=== PATIENT | male | born 1955 | race Caucasian/White ===

== ENCOUNTER 2016-12-16 16:18 | Emergency (ER) | payer OTHER ==
[~2016-12-16] VITALS: Ht 175.3 cm; Wt 90.0 kg
[2016-12-16 16:19] VITALS: BP 179/95; PULSE 95; RESP 20; TEMP 99.4; O2SAT 96
--- NOTE | 2016-12-16 16:37 | PD ---
Physical Exam Time Seen by Provider: 16:35 Narrative 61 y/o male here for eval of RLQ abdominal/back pain. Hx of kidney stones but this feels different. Vital signs reviewed. Seen at triage desk. Awaiting bed placement. Data Data Last Documented VS Vital Signs Date Time Temp Pulse Resp B/P Pulse Ox O2 Delivery O2 Flow Rate FiO2 12/16/16 16:19 99.4 95 20 179/95 96 Room Air [facility] Medical Record Reviewed: Yes Supervised Visit with MARLINE: Sedrick Chan Dec 16, 2016 16:37
[2016-12-16 17:16] LABS: AUTOMATED NEUTROPHIL # 11.4 TH/MM3 (1.8-7.7); BASOPHIL % 0.2 % (0.0-2.0); EOSINOPHIL # 0.1 TH/MM3 (0-0.4); EOSINOPHIL % 0.6 % (0.0-4.0); HEMATOCRIT 49.6 % (39.0-51.0); HEMO FLAGS DIFF FINAL; LYMPH % 10.5 % (9.0-44.0); LYMPHOCYTE # 1.5 TH/MM3 (1.0-4.8); MEAN CELL VOLUME 88.4 FL (80.0-100.0); MEAN CORPUSCULAR HEMOGLOBIN 29.7 PG (27.0-34.0); MEAN CORPUSCULAR HGB CONC 33.6 % (32.0-36.0); MONO % 7.2 % (0.0-8.0); NEUT % 81.5 % (16.0-70.0); PLATELET COUNT 229 TH/MM3 (150-450); RED BLOOD COUNT 5.61 MIL/MM3 (4.50-5.90); RED CELL DISTRIBUTION WIDTH 13.6 % (11.6-17.2); WHITE BLOOD COUNT 13.9 TH/MM3 (4.0-11.0)
[2016-12-16 17:18] LABS: BACTERIA, URINE RARE /hpf; BLOOD, URINE MOD (NEG); COMMENT (UR) CULTURE INDICATED; CULTURE IF INDICATED CULTURE INDICATED; GLUCOSE,URINE NEG (NEG); KETONE, URINE NEG (NEG); MUCUS URINE FEW /lpf (OCC); NITRITE,URINE NEG (NEG); PH, URINE 5.5 (5.0-8.5); SQUAMOUS EPITHELIAL CELL URINE <1 /hpf (0-5); URINE COLOR YELLOW (YELLW/STRAW)
[2016-12-16 17:27] LABS: APTT (PATIENT) 25.4 SEC (24.3-30.1); PROTHROMBIN TIME - PATIENT 10.6 SEC (9.8-11.6)
[2016-12-16 17:55] LABS: ALKALINE PHOSPHATASE 80 U/L (45-117); ALT (GPT) 44 U/L (12-78); TOTAL BILIRUBIN ADULT 0.6 MG/DL (0.2-1.0)
[2016-12-16 18:09] LABS: ANION GAP 7 MEQ/L (5-15); AST (GOT) 31 U/L (15-37); BICARBONATE 28.7 MEQ/L (21.0-32.0); BLOOD UREA NITROGEN 17 MG/DL (7-18); CHLORIDE 102 MEQ/L (98-107); GLOMERULAR FILTRATION RATE 65 ML/MIN (>89); SODIUM (NA) 138 MEQ/L (136-145)
[2016-12-16 18:11] LABS: POTASSIUM 4.2 MEQ/L (3.5-5.1)
[2016-12-16 18:31] VITALS: BP 183/86; PULSE 93; RESP 18; O2SAT 95
--- NOTE | 2016-12-16 18:34 | PD ---
HPI Chief Complaint: Complaint Time Seen by Provider: 18:16 Travel History International Travel<30 days: No Contact w/Intl Traveler<30days: No Traveled to known affect area: No History of Present Illness HPI 61-year-old male arrives to the ER complaining of severe right lower quadrant pain with radiation to the testicles. It started earlier today and then resolved spontaneously. He states the pain was 10 over 10. He has history of kidney stones and states the pain is somewhat different in quality. At time of ER evaluation the pain has more or less resolved. During the episode of pain in the testicles had evidently retracted into the groin. He notes that the pain started somewhat gradually. He also notes that he did feel some discomfort in the right flank. He's had no fever. There is no nausea or vomiting. Bending over at the waist while seated mitigated pain severity. He has seen no hematuria. PFSH Past Medical History Genitourinary: Yes Social History Alcohol Use: Yes Tobacco Use: No Allergies-Medications (Allergen,Severity, Reaction): Coded Allergies: No Known Allergies (Unverified , 12/16/16) Reported Meds & Prescriptions Reported Meds & Active Scripts Active Cipro (Ciprofloxacin HCl) 500 Mg Tab 500 Mg PO BID 5 Days Flomax (Tamsulosin HCl) 0.4 Mg Cap 0.4 Mg PO HS Percocet (Oxycodone-Acetaminophen) 5-325 mg Tab 1-2 Tab PO Q8HR PRN Review of Systems Except as stated in HPI: all other systems reviewed are Neg General / Constitutional: No: Fever Gastrointestinal: Positive: Abdominal Pain Physical Exam Narrative GENERAL: 61-year-old male well-nourished well-developed acute distress GENITOURINARY: No testicular mass. The testicular lie appears normal. There is no pain with manipulation/elevation of the scrotum/testicles. No penile discharge. No inguinal hernia. No perineal tenderness or crepitus. SKIN: Focused skin assessment warm/dry. HEAD: Atraumatic. Normocephalic. EYES: Pupils equal and round. No scleral icterus. No injection or drainage. ENT: No nasal bleeding or discharge. Mucous membranes pink and moist. NECK: Trachea midline. No JVD. CARDIOVASCULAR: Regular rate and rhythm. No murmur appreciated. RESPIRATORY: No accessory muscle use. Clear to auscultation. Breath sounds equal bilaterally. GASTROINTESTINAL: No TTP RLQ. No TTP suprapubic abdomen or in epigastrium. Soft. No flank tenderness. MUSCULOSKELETAL: No obvious deformities. No clubbing. No cyanosis. No edema. NEUROLOGICAL: Awake and alert. No obvious cranial nerve deficits. Motor grossly within normal limits. Normal speech. PSYCHIATRIC: Appropriate mood and affect; insight and judgment normal. Data Data Last Documented VS Vital Signs Date Time Temp Pulse Resp B/P Pulse Ox O2 Delivery O2 Flow Rate FiO2 12/16/16 20:59 98.7 78 16 141/63 99 12/16/16 20:18 Room Air VS reviewed Orders Complete Blood Count With Diff (12/16/16 16:37) Comprehensive Metabolic Panel (12/16/16 16:37) Lipase (12/16/16 16:37) Prothrombin Time / Inr (Pt) (12/16/16 16:37) Act Partial Throm Time (Ptt) (12/16/16 16:37) Urinalysis - C+S If Indicated (12/16/16 16:37) Urine Culture (12/16/16 17:06) Ct Abd/Pel W/O Iv Contrast (12/16/16 18:25) Morphine Inj (Morphine Inj) (12/16/16 20:15) Ondansetron Inj (Zofran Inj) (12/16/16 20:15) Ciprofloxacin (Cipro) (12/16/16 20:45) Ketorolac Inj (Toradol Inj) (12/16/16 20:45) Labs Laboratory Tests Test 12/16/16 12/16/16 16:49 17:06 White Blood Count 13.9 TH/MM3 Red Blood Count 5.61 MIL/MM3 Hemoglobin 16.7 GM/DL Hematocrit 49.6 % Mean Corpuscular Volume 88.4 FL Mean Corpuscular Hemoglobin 29.7 PG Mean Corpuscular Hemoglobin 33.6 % Concent Red Cell Distribution Width 13.6 % Platelet Count 229 TH/MM3 Mean Platelet Volume 9.0 FL Neutrophils (%) (Auto) 81.5 % Lymphocytes (%) (Auto) 10.5 % Monocytes (%) (Auto) 7.2 % Eosinophils (%) (Auto) 0.6 % Basophils (%) (Auto) 0.2 % Neutrophils # (Auto) 11.4 TH/MM3 Lymphocytes # (Auto) 1.5 TH/MM3 Monocytes # (Auto) 1.0 TH/MM3 Eosinophils # (Auto) 0.1 TH/MM3 Basophils # (Auto) 0.0 TH/MM3 CBC Comment DIFF FINAL Differential Comment Prothrombin Time 10.6 SEC Prothromb Time International 1.0 RATIO Ratio Activated Partial 25.4 SEC Thromboplast Time Sodium Level 138 MEQ/L Potassium Level 4.2 MEQ/L Chloride Level 102 MEQ/L Carbon Dioxide Level 28.7 MEQ/L Anion Gap 7 MEQ/L Blood Urea Nitrogen 17 MG/DL Creatinine 1.15 MG/DL Estimat Glomerular Filtration 65 ML/MIN Rate Random Glucose 88 MG/DL Calcium Level 9.6 MG/DL Total Bilirubin 0.6 MG/DL Aspartate Amino Transf 31 U/L (AST/SGOT) Alanine Aminotransferase 44 U/L (ALT/SGPT) Alkaline Phosphatase 80 U/L Total Protein 8.0 GM/DL Albumin 4.7 GM/DL Lipase 934 U/L Urine Color YELLOW Urine Turbidity CLEAR Urine pH 5.5 Urine Specific [place] 1.020 Urine Protein 30 mg/dL Urine Glucose (UA) NEG mg/dL Urine Ketones NEG mg/dL Urine Occult Blood MOD Urine Nitrite NEG Urine Bilirubin NEG Urine Urobilinogen LESS THAN 2.0 MG/DL Urine Leukocyte Esterase MOD Urine RBC 129 /hpf Urine WBC 24 /hpf Urine Squamous Epithelial <1 /hpf Cells Urine Bacteria RARE /hpf Urine Mucus FEW /lpf Microscopic Urinalysis Comment CULTURE INDICATED MDM Medical Decision Making Medical Screen Exam Complete: Yes Emergency Medical Condition: Yes Differential Diagnosis Appendicitis, torsed testicle, epididymitis, UTI, kidney stone, varicocele, urethritis, pancreatitis Narrative Course CBC & BMP Diagram 12/16/16 16:49 LFTs normal Lipase 934 Coags normal Urinalysis shows hematuria with occasional wbc's Last 24 hours Impressions Abdomen/Pelvis CT 12/16/16 3660 Signed Impressions: Service Date/Time: November 19:57 - CONCLUSION: 1. Right- sided obstructive uropathy with moderate hydronephrosis and ureteral dilatation above 2 calculi within the right ureter located at the distal right ureter as it crosses the external iliac artery. Numerous additional bilateral nonobstructing renal calculi. Sushant Mason MD Elevated lipase is unexpected. Pt does not hyperlipidemic and does not drink alcohol. This coupled with the atypical presentation of ureter colic/stones is somewhat indeterminate. We'll add a CT scan on for further investigation. The patient is resting comfortably and feels better, is alert and in no distress. The patients results and examination findings were discussed. The repeat examination is unremarkable and benign. The history, exam, diagnostic testing, and current condition do not suggest any significant pathology to warrant further testing, continued ED treatment, admission, or surgical evaluation at this point. The vital signs have been stable. The patient does not have uncontrollable pain, intractable vomiting, or other significant symptoms. The patient's condition is stable and appropriate for discharge. The patient will pursue further outpatient evaluation with a primary care physician or other designated or consulting physician as indicated in the discharge instructions. The patient expressed understanding and was agreeable with this plan. Diagnosis Primary Impression: Ureteral calculi Additional Impressions: Hydronephrosis Qualified Code: N13.2 - Hydronephrosis with urinary obstruction due to ureteral calculus Pancreatitis Qualified Code: K86.1 - Chronic pancreatitis, unspecified pancreatitis type Referrals: Diana Steinberg MD, Samuel M MD Dr Lawindy is a urologist. Please call for follow up appointment. Bar García MD [facility] Additional Instructions: REASONS TO RETURN TO THE ER RIGHT AWAY INCLUDE: VOMITING, FEVER, SEVERE PAIN OR IF PER YOUR DISCRETION. PLEASE RETURN TO THE ER RIGHT AWAY ESPECIALLY IF YOU DEVELOP A CONSTANT PAIN WITHIN THE NEXT 8 HOURS AFTER DISCHARGE. LONNIE García and Maryan are primary care doctors. Dr Silverio is a urologist. REMEMBER TO HAVE YOU LIPASE RECHECKED WITHIN THE NEXT FEW WEEKS TO MAKE SURE IT RETURNS TO NORMAL. THE LEVEL TODAY WAS 930. PLEASE REMEMBER NO HEAVY LIFTING OR STRENUOUS EXERCISE WHILE YOU TAKE CIPRO. PLEASE DO NOT DRIVE OR WORK AFTER TAKING PERCOCET IT WILL ALTER YOUR SENSORIUM AND JUDGEMENT. You have a choice when it comes to health care, and we are glad that you chose [facility]. Hopefully, we have met your expectations on today's visit. You are welcome to return to [facility] at any time, as we are committed to meeting the health care needs of our community. Med/Other Pt SpecificInfo: Prescription(s) given Scripts Ciprofloxacin (Cipro)500 Mg [id number] Mg PO BID 5 Days Ref 0 Prov:Alexandre Aragon MD 12/16/16 Tamsulosin (Flomax)0.4 Mg Cap0.4 Mg PO HS #6 CAP Ref 0 Prov:Alexandre Aragon MD 12/16/16 Oxycodone-Acetaminophen (Percocet)5-325 mg Tab1-2 Tab PO Q8HR PRN (PAIN SCALE 6 TO 10) #20 TAB Ref 0 Prov:Alexandre Aragon MD 12/16/16 Disposition: 01 DISCHARGE HOME Condition: Stable Alexandre Aragon MD Dec 16, 2016 18:34
[2016-12-16] MEDS ORDERED: ONDANSETRON HCL 4 MG/2 ML VIAL IV PUSH ONE (20:15)
[2016-12-16] MEDS ORDERED: MORPHINE SULFATE 8 MG/ML INJ IV PUSH ONE (20:15)
[2016-12-16 20:18] VITALS: BP 176/80; PULSE 72; RESP 16; TEMP 98.5; O2SAT 100
--- NOTE | 2016-12-16 20:25 | RADRPT ---
EXAM DATE/TIME: 12/16/2016 19:57 [facility] COMPARISON: No previous studies available for comparison. INDICATIONS : Lower abdominal pain, evaluate for calculi. ORAL CONTRAST: No oral contrast ingested. RADIATION DOSE: 15.33 CTDIvol (mGy) MEDICAL HISTORY : Renal calculi. SURGICAL HISTORY : fistula repair ENCOUNTER: Initial ACUITY: 1 day PAIN SCALE: 8/10 LOCATION: Right lower quadrant TECHNIQUE: Volumetric scanning of the abdomen and pelvis was performed. Using automated exposure control and ad justment of the mA and/or kV according to patient size, radiation dose was kept as low as reasonably achievable to obtain optimal diagnostic quality images. DICOM format image data is available electro nically for review and comparison. FINDINGS: There is a right-sided obstructive uropathy with moderate right-sided hydronephrosis and ureteral dil atation above 2 calculi in the right ureter located within the pelvis as the ureter crosses the exter nal iliac artery. These calculi measure around 5 mm in diameter. There are numerous additional nonobstructing calculi in both kidneys ranging in size from about 1 mm to 5 mm on the right and 1 mm to 10 mm on the left. Lung bases demonstrate some dependent atelectasis. No acute findings in the liver, spleen, adrenals o r pancreas. There is no free fluid. No bowel obstruction. No adenopathy. CONCLUSION: 1. Right-sided obstructive uropathy with moderate hydronephrosis and ureteral dilatation above 2 calc elizabeth within the right ureter located at the distal right ureter as it crosses the external iliac arter y. Numerous additional bilateral nonobstructing renal calculi. Sushant Mason MD on December 16, 2016 at 20:18 Board Certified Radiologist. This report was verified electronically.
[2016-12-16] MEDS ORDERED: PERC5TAB12 PO (20:35)
[2016-12-16] MEDS ORDERED: TAMS5CAP PO (20:35)
[2016-12-16] MEDS ORDERED: CIPR-9 PO (20:35)
[2016-12-16] MEDS ORDERED: CIPROFLOXACIN 500 MG TAB PO ONE (20:45)
[2016-12-16] MEDS ORDERED: KETOROLAC TROMETHAMINE 30 MG/ML (IVP) VIAL IV PUSH ONE (20:45)
[2016-12-16 20:52] VITALS: RESP 16
[2016-12-16 20:59] VITALS: BP 141/63; TEMP 98.7
== END 2016-12-16 21:34 | disposition home or self-care (01) ==
LOC: NEPD 16:18
DX: N13.2 Hydronephrosis with renal and ureteral calculous obstruction (principal); K85.90 Acute pancreatitis without necrosis or infection, unspecified; R31.9 Hematuria, unspecified; Z79.899 Other long term (current) drug therapy
CPT/HCPCS: 74176; 80053; 81001; 83690; 85025; 85610; 85730; 87086; 96374; 96375; 99285; J1885; J2270; J2405